=== PATIENT | male | born 1980 | race Caucasian/White ===

== ENCOUNTER 2020-07-18 12:18 | Outpatient (REF) | payer OTHER, SELFPAY | END 2020-07-18 12:19 | disposition home or self-care (01) | LOC: HO.HMGCLDS 12:18 | PROVIDERS: Visit Provider Internal Medicine | DX: Z20.828 Contact with and (suspected) exposure to other viral communicable diseases (principal) | CPT/HCPCS: C9803; U0003 ==

== ENCOUNTER 2020-08-16 07:24 | Outpatient (REF) | payer OTHER, SELFPAY | END 2020-08-16 07:25 | disposition home or self-care (01) | LOC: HO.LAB 07:24 | PROVIDERS: Visit Provider Internal Medicine | DX: Z20.828 Contact with and (suspected) exposure to other viral communicable diseases (principal) | CPT/HCPCS: C9803; U0003 ==

== ENCOUNTER 2020-09-13 07:04 | Outpatient (REF) | payer OTHER, SELFPAY | END 2020-09-13 07:05 | disposition home or self-care (01) | LOC: HO.LAB 07:04 | PROVIDERS: Visit Provider Internal Medicine | DX: Z20.828 Contact with and (suspected) exposure to other viral communicable diseases (principal) | CPT/HCPCS: 36415; C9803; U0003 ==

== ENCOUNTER 2023-03-07 10:21 | Outpatient (REF) | payer BC, OTHER, SELFPAY ==
[2023-03-07 11:41] LABS: Basophils Percent Auto 0.4 % (0-2); Eosinophils Percent Auto 0.2 % (0-4); Hematocrit 47.3 % (42.0-52.0); Hemoglobin 15.2 g/dl (14.0-18.0); Imm Gran Abs Auto 0.01 X10*3/uL (0.00-0.03); Imm Gran Pct Auto 0.2 % (0.0-0.4); Lymphocytes Absolute Auto 0.9 X10*3/uL (1.2-4.9); Lymphocytes Percent Auto 17.9 % (20-40); MANUAL DIFF FLAG SCAN; Mean Corpuscular HGB Conc 32.1 g/dl (31.0-36.0); Mean Corpuscular Hemoglobin 28.4 pg (27.0-33.0); Mean Corpuscular Volume 88.4 fL (80.0-98.0); Mean Platelet Volume 9.6 fL (9.4-12.4); Monocytes Absolute Auto 0.8 X10*3/uL (0.1-1.2); Neutrophils Absolute Auto 3.1 x10*3/uL (2.0-8.3); Neutrophils Percent Auto 65.3 % (45-73); PLT CLUMP 1; Red Blood Count 5.35 X10*6/uL (4.60-5.80); Red Cell Distribution Width 13.9 % (11.0-16.0); SCAN SMEAR FLAG 1
[2023-03-07 11:42] LABS: White Blood Count 4.8 X10*3/uL (4.8-10.8)
[2023-03-07 11:59] LABS: Platelet Count 166 X10*3/uL (160-400)
[2023-03-07 12:00] LABS: SLIDE REVIEW VERIFIED
[2023-03-07 12:20] LABS: Anion Gap 13 (12-20); Blood Urea Nitrogen 15 mg/dL (9-16); Calcium 9.5 mg/dL (8.4-10.2); Carbon Dioxide 25 mmol/L (22-29); Chloride 105 mmol/L (96-108); Estimated Glomerular Filt Rate > 60; Glucose Random 98 mg/dL (60-115); Potassium 4.2 mmol/L (3.3-5.1); Sodium 139 mmol/L (135-145)
[2023-03-10 17:48] LABS: Lyme Abs Screen <0.90 index
== END 2023-03-07 10:22 | disposition home or self-care (01) ==
LOC: HO.HMGCLDS 10:21
PROVIDERS: Visit Provider Nurse Practitioner Family
DX: A69.20 Lyme disease, unspecified (principal)
CPT/HCPCS: 36415; 80048; 85025; 86617; 86618

== ENCOUNTER 2023-04-15 08:04 | Outpatient (AMB) | payer BC, OTHER, SELFPAY ==
--- NOTE | 2023-04-15 08:07 | AM.OFFWIN_ITS ---
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 Pt states started Friday. 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 Patient is complaining of sudden onset sore throat and difficulty swallowing. In addition is complaining of joint pains in the wrist and knee. Feeling tired and fatigue. Started 3 weeks of doxycycline at the end of February. Patient reports that though the Lyme test was negative he completed the course. [facility] Social History Patient Tobacco Use Status: Never used Tobacco Physical Exam Vital Signs: Last Vital Signs Temp 98.5 F 04/15/23 08:16 Pulse 101 H 04/15/23 08:16 BP 118/66 04/15/23 08:16 Pulse Ox 98 04/15/23 08:16 Oxygen Delivery Method Room Air 04/15/23 08:16 Const General: cooperative and healthy appearing Nutritional Appearance: well nourished Orientation/consciousness: patient oriented x3 Limitations: no limitations HEENT Head: Yes normal to inspection Eyes General: appearance normal, both eyes and all related structures Neck Neck: Yes normal visual inspection Chest Chest palpation & inspection: normal palpation of entire chest wall Resp Effort & Inspection: normal respiratory effort Neuro General: patient oriented x3 Results AMB Rapid Strep AMB Rapid Strep Negative Last Edit by Alina Garcia CMA on 04/15/23 08 :30 Results Reviewed Results Reviewed: Laboratory Last Values Strep Scn Rapid Clinic Negative 04/15/23 08:30 Assessment & Plan Assessment & Plan (1) Upper respiratory tract infection: Code(s): J06.9 - Acute upper respiratory infection, unspecified Plan: Antibiotics ordered. Increase fluid intake. Tylenol for aches and pains. If symptoms worsen, follow-up here for a recheck. Patient requested repeat Lyme testing. The blood work has been ordered. Will call with results. Orders: Orders Lyme IgG/IgM w/reflex to WB Today A69.20 - Lyme disease, unspecified Erythrocyte Sedimentation Rate Today A69.20 - Lyme disease, unspecified Complete Blood Count no Diff Today A69.20 - Lyme disease, unspecified Basic Metabolic Panel Today A69.20 - Lyme disease, unspecified Liver Panel Today A69.20 - Lyme disease, unspecified AMB Rapid Strep Screen Today Z13.9 - Encounter for screening, unspecified Medications: New amoxicillin 500 mg PO Q8H 30 caps 0RF Coding Level of Care Code Est Pt Level 3 (84909) Diagnoses Upper respiratory tract infection J06.9
[2023-04-15 08:16] VITALS: BP 118/66; PULSE 101; TEMP 36.9; O2SAT 98
== END 2023-04-15 09:53 | disposition home or self-care (01) ==
PROVIDERS: Visit Provider Internal Medicine
DX: J06.9 Acute upper respiratory infection, unspecified (principal); J02.9 Acute pharyngitis, unspecified
CPT/HCPCS: 87880; 99213

== ENCOUNTER 2023-04-15 08:30 | Outpatient (REF) | payer BC, OTHER, SELFPAY ==
[2023-04-15 11:48] LABS: Hematocrit 50.1 % (42.0-52.0); Hemoglobin 16.1 g/dl (14.0-18.0); Mean Corpuscular HGB Conc 32.1 g/dl (31.0-36.0); Mean Corpuscular Hemoglobin 28.4 pg (27.0-33.0); Mean Corpuscular Volume 88.4 fL (80.0-98.0); Mean Platelet Volume 9.5 fL (9.4-12.4); Platelet Count 222 X10*3/uL (160-400); Red Blood Count 5.67 X10*6/uL (4.60-5.80); Red Cell Distribution Width 13.8 % (11.0-16.0); White Blood Count 12.5 X10*3/uL (4.8-10.8)
[2023-04-15 12:21] LABS: Erythrocyte Sedimentation Rate 7 MM/HR (0-15)
[2023-04-15 12:26] LABS: Alanine Aminotransferase 50 U/L (0-40); Albumin Level 4.3 g/dL (3.5-5.0); Alkaline Phosphatase 64 U/L (39-117); Anion Gap 11 (12-20); Aspartate Amino Transferase 29 U/L (5-37); Bilirubin Direct 0.2 mg/dL (0.0-0.5); Bilirubin Total 0.4 mg/dL (0.0-1.0); Blood Urea Nitrogen 16 mg/dL (9-16); Calcium 9.5 mg/dL (8.4-10.2); Carbon Dioxide 24 mmol/L (22-29); Chloride 106 mmol/L (96-108); Estimated Glomerular Filt Rate > 60; Glucose Random 105 mg/dL (60-115); Potassium 4.1 mmol/L (3.3-5.1); Sodium 137 mmol/L (135-145); Total Protein 7.6 g/dL (6.5-8.0)
[2023-04-17 08:23] LABS: Lyme Blot 3.84 index
[2023-04-18 12:17] LABS: 18 KD (IgG) Band NON-REACTIVE; 23 KD (IgG) Band REACTIVE; 23 KD (IgM) Band REACTIVE; 28 KD (IgG) Band NON-REACTIVE; 30 KD (IgG) Band NON-REACTIVE; 39 KD (IgM) Band NON-REACTIVE; 39KD (IgG) Band NON-REACTIVE; 41 KD (IgM) Band REACTIVE; 41KD (IgG) Band REACTIVE; 45 KD (IgG) Band NON-REACTIVE; 58 KD (IgG) Band NON-REACTIVE; 66 KD (IgG) Band NON-REACTIVE; 93 KD (IgG) Band NON-REACTIVE; Lyme IgG Blot Interp NEGATIVE (NEGATIVE); Lyme IgM Blot Interp POSITIVE (NEGATIVE)
[2023-04-18 12:19] LABS: Lyme Abs Screen POSITIVE
== END 2023-04-15 08:31 | disposition home or self-care (01) ==
LOC: HO.HMGCLDS 08:30
PROVIDERS: Visit Provider Internal Medicine
DX: A69.20 Lyme disease, unspecified (principal)
CPT/HCPCS: 36415; 80048; 80076; 85027; 85652; 86617; 86618

== ENCOUNTER 2023-09-18 08:01 | Outpatient (AMB) | payer BC, SELFPAY ==
[2023-09-18 08:08] VITALS: BP 118/64; PULSE 78; O2SAT 97; BMI 36.5
--- NOTE | 2023-09-18 08:08 | A.OFFPC_ITS ---
Vital Signs 09/18/23 08:08 Height 5 ft 9 in Weight 247 lb BMI 36.5 BP 118/64 Blood Pressure Location Rt brachial Position Sitting Pulse 78 Pulse Source Pulse Oximeter Pulse Oximetry (%) 97 Oxygen Delivery Method Room Air Intake Visit Reasons: New Patient Intake Note: pt is here for new patient, establish care. patient has concerns about lingering cough and congestion for 5 weeks. was given a friends inhaler to help with breathing Retirement Officer Required: No Accompanied by: Self / Same As Patient Allergies No Known Allergies Allergy (Verified 09/18/23 08:24) all narcotics / do not prescri Allergy (Unknown, Uncoded 09/18/23 08:24) Unknown Medication List - Last Reconciled 09/18/23 by DENIS Pérez testosterone cypionate 200 mg IM Q2W Tobacco use date assessed: 09/18/23 Dental Screening Dental Screen Date: 09/18/23 Did you have a dental visit in the last 12 months?: No Did you have a dental problem in the last 6 months where you did not have access to dental care?: No Was dental information given to patient?: Yes HPI HPI Comments History of Present Illness Details Patient is a 43-year-old male here to establish care. He has a past medical history significant for Lyme disease. He is due for colonoscopy next year. Up-to-date on immunizations, except for this year's influenza a and COVID booster. 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 He has a chief complaint of wheeze and cough x6 weeks. States that he has of little child home that has been sick and has similar symptoms. His initial symptoms of fever, sore throat, headache have resolved, however the cough has lingered. He states that the cough is so bad at times makes him lightheaded. Tends to be worse at night and is interrupting his ability to sleep. Denies shortness of breath, chest pain, numbness, tingling, nausea, vomiting, diarrhea. 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 1. Little interest or pleasure in doing things: not at all 2. Feeling down, depressed, or hopeless: not at all 3. Trouble falling or staying asleep, or sleeping too much: not at all 4. Feeling tired or having little energy: not at all 5. Poor appetite or overeating: not at all 6. Feeling bad about yourself - or that you are a failure or have let yourself or your family down: not at all 7. Trouble concentrating on things, such as reading the newspaper or watching television: not at all 8. Moving or speaking so slowly that other people could have noticed. Or the opposite - being so fidgety or restless that you have been moving around a lot more than usual: not at all 9. Thoughts that you would be better off or of hurting yourself in some way: not at all Total score: 0 Depression Screening Interpretation: Negative Depression Screening Done: Yes 62190 - PHQ-9 Billing: Yes Source: Developed by Drs. Fabrice Gan, Idania Aguirre, Rl Palomo and colleagues, with an educational drake from [employer]. Thrive Questionnaire Date Thrive assessed: 09/18/23 I am a: Patient What is your living situation today?: I have a steady place to live Within the past 12 months, did the food you bought not last and you didn't have the money to get more?: Never true Within the past 12 months, did you worry whether your food would run out before you got money to buy more?: Never true Do you have trouble paying for medicines?: No Do you have trouble getting transportation to medical appointments?: No Do you have trouble paying your heating and electricity bill?: No Do you have trouble taking care of your child, family member or friend?: No Do you have trouble with day-to-day activities such as bathing, preparing meals, shopping, managing finances, etc.?: No Are you currently unemployed and looking for a job?: No Are you interested in more education?: No Please select the resources that you would like help with: None Currently or been in a relationship where the following occur: no concerns reported AUDIT C Alcohol Use Questionnaire (AUDIT-C) 1. How often do you have a drink containing alcohol?: Never 3. How often do you have six or more drinks on one occasion?: Never Total Score: 0 Score Reviewed/Action Taken: Yes DEION-7 AMB Questionnaire DEION-7 Date DEION - 7 assessed: 09/18/23 Feeling nervous, anxious, or on edge: 0 = Not at all Not being able to stop or control worryin = Not at all Worrying too much about different things: 0 = Not at all Trouble relaxin = Not at all Being so restless that it is hard to sit still: 0 = Not at all Becoming easily annoyed or irritable: 0 = Not at all Feeling afraid as if something awful might happen: 0 = Not at all Total DEION-7 score (0-4 normal; 5-9 mild; 10-14 moderate; 15-21 severe): 0 Source: Developed by Drs. Fabrice Gan, Idania Aguirre, Rl Palomo and colleagues, with an educational drake from [employer]. DEION-7 Assessment Billing DEION-7 Assessment Tool: DEION-7 Assessment 29141 Review of Systems Const Details: Constitutional : No Weight loss, No Fever, No Chills, No Fatigue, No Malaise ENT/Mouth : No sore throat, No Rhinorrhea Eyes: No Eye Pain, No Swelling, No Redness Cardiovascular : No Chest Pain, No SOB, No Dyspnea on Exertion, No Orthopnea, No Edema, No Palpitations Respiratory : Admits Cough, Admits Sputum, Admits Wheezing Gastrointestinal : No Nausea, No Vomiting, No Diarrhea, No Constipation, No abdominal Pain, No Hematochezia, No Melena Neuro : No Weakness, No Numbness, No Dizziness, No Headache All other systems reviewed and are negative Physical exam (Primary Care) Vital Signs: Last Vital Signs Pulse 78 09/18/23 08:08 BP 118/64 09/18/23 08:08 Pulse Ox 97 09/18/23 08:08 Oxygen Delivery Method Room Air 09/18/23 08:08 Care Plan Goal for BP management: Vital signs reviewed and stable BMI result Body Mass Index 36.5 Tobacco/Smoking Status: Tobacco use Status Tobacco use date assessed 09/18/23 09/18/23 08:11 Patient Tobacco Use Status Former Tobacco user (over 20 09/18/23 08:18 years ago) e-Cigarette/Vaping Use Never Used 09/18/23 08:17 Depression Screening Interpretation: Negative Currently or been in a relationship where the following occur: no concerns reported Const Other: Appearance: Alert.? Oriented X3.? No acute distress.? ENT: Pharynx normal.? Neck: Normal inspection.? Neck supple.? CVS: Normal heart rate and rhythm.? Pulses normal.? Respiratory: No respiratory distress.? Patient active cough in office. Bilateral wheeze of upper lobes. No crackles. Neuro: Oriented X 3.? No motor deficit.? No sensory deficit. CN 2-12 intact MSK: Crepitus of left elbow with flexion and extension. Assessment and Plan Assessment & Plan (1) Cough: Comment: Will give benzonatate, prednisone, albuterol, Symbicort, to be taken as directed. Patient has been educated on the common side effects of these medications. Patient has been educated on signs of worsening symptoms and when to return to the office or when to present to the emergency room. Code(s): R05.9 - Cough, unspecified Qualifiers: Cough type: acute Qualified Code(s): R05.1 - Acute cough Plan: Take your medications as prescribed. If you were prescribed antibiotics today, it is important that you take your medication to their entirety, do not skip any doses, do not finish them early. Follow-up with your primary care provider this week. Return to the emergency department with new or worsening symptoms. Such as fevers, chills, chest pain, shortness of breath, nausea, vomiting, dizziness, headache, vision changes, lethargy In case of emergency call 911 (2) Left elbow pain: Code(s): M25.522 - Pain in left elbow Plan: Will order x-ray of left elbow. Plan Patient will follow-up with physical exam in 4 months. Orders: Orders Complete Blood Count Auto Diff Today Z13.0 - Encounter for screening for disease s of the blood and blood-forming organs and certain disorders involving the immune mechanism UA CC w/rflx Micro + Cult Today E86.0 - Dehydration Vitamin B6 Today E53.8 - Deficiency of other specified B group vitamins Lipid Panel Today E78.5 - Hyperlipidemia, unspecified XR elbow LT 2V Today M25.522 - Pain in left elbow SARS-CoV2/FLU/RSV Today J06.9 - Acute upper respiratory infection, unspecified Comprehensive Met. Panel Today Z91.89 - Other specified personal risk factors, not elsewhere classified Vitamin D 25-OH (D2 and D3) Today E55.9 - Vitamin D deficiency, unspecified TSH reflex Free T4 Today E03.9 - Hypothyroidism, unspecified Vitamin B12 Today E53.8 - Deficiency of other specified B group vitamins Testosterone, Free/Total Today E29.1 - Testicular hypofunction Medications: New benzonatate 100 mg PO BID PRN 30 caps 0RF cough albuterol sulfate 90 mcg/actuation 2 puffs inhalation Q6H PRN 6.7 grams 0RF shortness of breath or wheezing budesonide-formoterol 80-4.5 mcg/actuation (Symbicort) 1 puff inhalation BID 10.2 grams 0RF prednisone 20 mg PO BID 10 tabs 0RF Coding Level of Care Code Est Pt Level 3 (81482) Diagnoses Acute cough R05.1 Cough type: acute Left elbow pain M25.522 Additional Codes DEION-7 Assessment Billing - DEION-7 Assessment Tool: DEION-7 Assessment 78971 ([id number]) Time Spent (min) 45
== END 2023-09-18 09:00 | disposition home or self-care (01) ==
PROVIDERS: Visit Provider Nurse Practitioner Primary Care
DX: R05.1 Acute cough (principal); M25.522 Pain in left elbow
CPT/HCPCS: 99215

== ENCOUNTER 2023-09-18 08:54 | Outpatient (REF) | payer BC, SELFPAY ==
--- NOTE | ~2023-09-18 | XR_ITS ---
EXAMINATION: XR ELBOW, LEFT CLINICAL INFORMATION: Pain left elbow COMPARISON: None available. TECHNIQUE: AP, lateral, and oblique views of the left elbow. FINDINGS: Minimally displaced fracture along the medial margin of the proximal ulnar head with intra-articular extension. Slight enthesopathy at the triceps tendon insertion site. Joint space alignment otherwise maintained. Trace elbow joint effusion. Soft tissues are unremarkable. XR/XR elbow LT 2V IMPRESSION: 1. Minimally displaced fracture along the medial margin of the proximal ulnar head with intra-articular extension. 2. Slight enthesopathy at the triceps tendon insertion site. 3. Trace elbow joint effusion.
[2023-09-18 11:34] LABS: MANUAL DIFF FLAG NO
[2023-09-18 11:51] LABS: Basophils Percent Auto 0.3 % (0-2); Eosinophils Absolute Auto 0.1 X10*3/uL (0.0-0.4); Eosinophils Percent Auto 1.4 % (0-4); Hematocrit 52.1 % (42.0-52.0); Hemoglobin 17.1 g/dl (14.0-18.0); Imm Gran Abs Auto 0.03 X10*3/uL (0.00-0.03); Imm Gran Pct Auto 0.5 % (0.0-0.4); Lymphocytes Absolute Auto 1.6 X10*3/uL (1.2-4.9); Lymphocytes Percent Auto 25.4 % (20-40); Mean Corpuscular HGB Conc 32.8 g/dl (31.0-36.0); Mean Corpuscular Hemoglobin 27.9 pg (27.0-33.0); Mean Corpuscular Volume 85.1 fL (80.0-98.0); Mean Platelet Volume 9.3 fL (9.4-12.4); Monocytes Absolute Auto 0.6 X10*3/uL (0.1-1.2); Monocytes Percent Auto 9.7 % (2-11); Neutrophils Absolute Auto 3.9 x10*3/uL (2.0-8.3); Neutrophils Percent Auto 62.7 % (45-73); Platelet Count 244 X10*3/uL (160-400); Red Blood Count 6.12 X10*6/uL (4.60-5.80); Red Cell Distribution Width 13.5 % (11.0-16.0); White Blood Count 6.3 X10*3/uL (4.8-10.8)
[2023-09-18 12:08] LABS: Appearance Urine Clear; Color Urine Yellow; Glucose Urine UA Negative (Negative); Leukocyte Esterase Urine Negative (Negative); Nitrite Urine Negative (Negative); PH 6.5 (5.0-9.0); Urine Blood Negative (Negative); Urine Ketones Negative (Negative); Urine Protein Negative (Neg-Trace)
[2023-09-18 12:11] LABS: Alanine Aminotransferase 26 U/L (0-40); Albumin Level 4.3 g/dL (3.5-5.0); Alkaline Phosphatase 56 U/L (39-117); Anion Gap 11 (12-20); Aspartate Amino Transferase 23 U/L (5-37); Bilirubin Total 0.4 mg/dL (0.0-1.0); Blood Urea Nitrogen 18 mg/dL (9-16); Calcium 9.2 mg/dL (8.4-10.2); Carbon Dioxide 26 mmol/L (22-29); Chloride 104 mmol/L (96-108); Cholesterol 193 mg/dL (<200); Estimated Glomerular Filt Rate > 60; Glucose Random 106 mg/dL (60-115); HDL Cholesterol 47 mg/dL (>40); LDL Cholesterol Calculated 122 mg/dL (<100); Potassium 4.3 mmol/L (3.3-5.1); Sodium 137 mmol/L (135-145); Total Protein 7.7 g/dL (6.5-8.0); Triglycerides 120 mg/dL (<150)
[2023-09-18 12:20] LABS: Influenza A PCR NEGATIVE (Negative); Influenza B PCR NEGATIVE (Negative); Resp Syncy Virus RNA Qual PCR NEGATIVE (Negative); SARS COV2 PCR INHOUSE NEGATIVE (Negative)
[2023-09-18 12:23] LABS: Vitamin B12 509 pg/mL (200-900)
[2023-09-18 12:38] LABS: TSH reflex Free T4 2.22 uIU/mL (0.32-4.0)
[2023-09-23 16:13] LABS: Vitamin B6 9.7 ng/mL (2.1-21.7)
[2023-09-23 16:32] LABS: Vitamin D 25-OH, D2 <4 ng/mL; Vitamin D 25-OH, D3 26 ng/mL; Vitamin D 25-OH, Total 26 ng/mL (30-100)
[2023-09-24 15:32] LABS: Testosterone, Free 252.2 pg/mL (35.0-155.0); Testosterone, Total 1184 ng/dL (250-1100)
== END 2023-09-18 08:55 | disposition home or self-care (01) ==
LOC: HO.HMGCX 08:54
PROVIDERS: PCP Nurse Practitioner Primary Care; Visit Provider Nurse Practitioner Primary Care
DX: E53.8 Deficiency of other specified B group vitamins (principal); E55.9 Vitamin D deficiency, unspecified; E86.0 Dehydration; E29.1 Testicular hypofunction; E03.9 Hypothyroidism, unspecified; J06.9 Acute upper respiratory infection, unspecified; E78.5 Hyperlipidemia, unspecified; M25.522 Pain in left elbow; Z91.89 Other specified personal risk factors, not elsewhere classified; Z13.0 Encounter for screening for diseases of the blood and blood-forming organs and certain disorders involving the immune mechanism
CPT/HCPCS: 0241U; 36415; 73070; 80053; 80061; 81003; 82306; 82607; 84207; 84402; 84403; 84443; 85025

== ENCOUNTER 2023-09-24 10:07 | Outpatient (REF) | payer BC, SELFPAY | END 2023-09-24 10:08 | disposition home or self-care (01) | LOC: HO.HOSX 10:07 | PROVIDERS: Visit Provider Physician Assistant | DX: S53.442A Ulnar collateral ligament sprain of left elbow, initial encounter (principal) | CPT/HCPCS: 99202 ==

== ENCOUNTER 2023-09-24 10:27 | Outpatient (AMB) | payer BC, SELFPAY ==
--- NOTE | 2023-09-24 10:37 | A.OFFVIS_ITS ---
Intake Vital Signs 09/24/23 10:48 Height 5 ft 9 in Weight 247 lb BMI 36.5 Intake Visit Reasons: fc- left proximal ulna avulsion fx Intake Note: Max tamayo 43 year old male presents today as a new patient for an evaluation of left proximal ulna avulsion fx. Patient reports about 4-5 months ago while at work he was picking up box, he pulled sideways not realizing the box was wedged and he felt a pop. He placed box down and rested his arm. His pain has improved however he continues to have pain with rotating and pressing forward. Allergies No Known Allergies Allergy (Verified 09/24/23 10:40) all narcotics / do not prescri Allergy (Unknown, Uncoded 09/24/23 10:40) Unknown HPI fc- left proximal ulna avulsion fx HPI Details 43-year-old male who presents to the off ice today for evaluation of left elbow injury s/p picking up a box at work when he pulled sideways not realizing the box was wedged and he heard a pop in his elbow. He reports he placed the box down and rested his arm. He was seen in the past for his pain where x-rays were performed and he was referred to our office. He currently states he has improvement in his pain but he does c/o pain with rotating and pushing forward. 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 Current occupational exposures/hazards: Yes Cognitive needs: No Hearing needs: No Vision needs: Yes Review of Systems Const All systems reviewed & are unremarkable except as noted in HPI and below Physical Exam Vital Signs: BMI result Body Mass Index 36.5 Const General: cooperative, healthy appearing, comfortable, no acute distress, well developed and alert Orientation/consciousness: patient oriented x3 HEENT Head: Yes normal to inspection, Yes normocephalic and Yes atraumatic Eyes General: appearance normal, both eyes and all related structures Resp Effort & Inspection: normal respiratory effort and able to speak in complete sentences Cardio Rate: regular rate Peripheral pulses: Peripheral pulses 2+ throughout GI Palpation (GI): Soft to palpation Skin Lesions: no lesions Rashes: no rashes Neuro General: patient oriented x3 Extrem Other: Left elbow: Normal to inspection. No swelling or ecchymosis. No tenderness to palpation. He has full ROM. Supination and pronation without pain. NVI. Assessment & Plan Assessment & Plan (1) Ulnar collateral ligament sprain: Code(s): S53.449A - Ulnar collateral ligament sprain of unspecified elbow, initial encounter Qualifiers: Encounter type: initial encounter Laterality: left Qualified Code(s): S53.442A - Ulnar collateral ligament sprain of left elbow, initial encounter Plan Clinically he has no deficit and is functioning well without discomfort. He will continue activities as tolerated and follow-up if symptoms arise. Orders: Orders XR elbow LT min 3V Today M25.522 - Pain in left elbow Patient Instructions: Scribed for Cornel Low PA-C, by Mckinley Bull medical device sales consultant, on 09/24/2023 at 10:30 AM ADE. ICornel PA-C, have personally reviewed and agree with the information entered by the scribe. Coding Level of Care Code New Pt Level 3 (51767) Diagnoses Sprain of ulnar collateral ligament of left elbow, initial encounter S53.442A Encounter type: initial encounter Laterality: left
[2023-09-24 10:48] VITALS: BMI 36.5
== END 2023-09-24 11:17 | disposition home or self-care (01) ==
PROVIDERS: PCP Nurse Practitioner Primary Care; Visit Provider Physician Assistant
DX: S53.442A Ulnar collateral ligament sprain of left elbow, initial encounter (principal)
CPT/HCPCS: 99203

== ENCOUNTER 2024-01-05 13:32 | Outpatient (AMB) | payer BC, SELFPAY ==
[2024-01-05 13:38] VITALS: BP 120/74; PULSE 110; O2SAT 97; BMI 34.6
--- NOTE | 2024-01-05 13:38 | A.OFFPC_ITS ---
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 Required: No Accompanied by: Self / Same As Patient Allergies No Known Allergies Allergy (Verified 01/05/24 14:03) all narcotics / do not prescri Allergy (Unknown, Uncoded 01/05/24 14:03) Unknown Medication List - Last Reconciled 01/05/24 by DENIS Pérez testosterone cypionate 200 mg IM Q2W Tobacco use date assessed: 09/18/23 Dental Screening Dental Screen Date: 09/18/23 Did you have a dental visit in the last 12 months?: No Did you have a dental problem in the last 6 months where you did not have access to dental care?: No Was dental information given to patient?: Yes HPI HPI Comments History of Present Illness Details Patient is a 43-year-old male in today for physical exam. Patient is up-to-date on immunizations. Patient has a past medical history significant for left elbow pain secondary to ulnar ligament sprain, history of testosterone use. Patient states that he is generally feeling well, has no symptoms of anxiety or depression. States over this past winter he has gained 30 lb and is going back to the gym to workout, has subsequently restarted taking testosterone injections. Will order labs. Patient is tachycardic at exam today will order EKG. Patient denies symptoms of chest pain or shortness a breath. 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 How often do you have a drink containing alcohol?: Never 3. How often do you have six or more drinks on one occasion?: Never Total Score: 0 Score Reviewed/Action Taken: Yes DEION-7 AMB Questionnaire DEION-7 Date DEION - 7 assessed: 09/18/23 Source: Developed by Drs. Fabrice Gan, Idania Aguirre, Rl Palomo and colleagues, with an educational drake from [employer]. Review of Systems Const Details: Constitutional : No Weight loss, No Fever, No Chills, No Fatigue, No Malaise ENT/Mouth : No sore throat, No Rhinorrhea Eyes: No Eye Pain, No Swelling, No Redness Cardiovascular : No Chest Pain, No SOB, No Dyspnea on Exertion, No Orthopnea, No Edema, No Palpitations Respiratory : No Cough, No Sputum, No Wheezing Gastrointestinal : No Nausea, No Vomiting, No Diarrhea, No Constipation, No abdominal Pain, No Hematochezia, No Melena Genitourinary : No Dysuria, No Urinary Frequency, No Hematuria, Musculoskeletal : No joint pain, No Myalgias, No Joint Swelling Skin : No Skin Lesions, No rash Neuro : No Weakness, No Numbness, No Dizziness, No Headache Psych : No Anxiety/Panic, No Depression Heme/Lymph: No Bruising, No Bleeding,No Lymphadenopathy Endocrine : No Polyuria, No Polydipsia All other systems reviewed and are negative Physical exam (Primary Care) Vital Signs: Last Vital Signs Pulse 110 H 01/05/24 13:38 BP 120/74 01/05/24 13:38 Pulse Ox 97 01/05/24 13:38 Oxygen Delivery Method Room Air 01/05/24 13:38 Care Plan Goal for BP management: Patient's blood pressure is stable. BMI result Body Mass Index 34.6 Tobacco/Smoking Status: Tobacco use Status Tobacco use date assessed 09/18/23 01/05/24 13:38 Patient Tobacco Use Status Former Tobacco user (over 20 01/05/24 13:38 years ago) e-Cigarette/Vaping Use Never Used 01/05/24 13:38 Thrive Assessment: Date of Thrive Assessment Date Thrive assessed 09/18/23 01/05/24 13:38 Const Other: Appearance: Alert.? Oriented X3.? No acute distress.? Head: Normocephalic, atraumatic, no step-offs or deformities Eyes: Pupils equal, round and reactive to light.? ENT: Pharynx normal.?TM intact and pearly mccarthy. Neck: Normal inspection.? Neck supple.?Full ROM. CVS: Normal heart rate and rhythm.? Pulses normal.? Respiratory: No respiratory distress.? Breath sounds normal.? Abdomen: Soft and nontender.? Skin: Patient has raised growth on back of head, atypical nevi. Aprox 4mm x 4mm. Extremities: No lower extremity edema.? Back: No midline tenderness, no C-spine tenderness, full range of motion, no CVA tenderness bilaterally Neuro: Oriented X 3.? No motor deficit.? No sensory deficit. CN 2-12 intact Assessment and Plan Assessment & Plan (1) Elevated testosterone level: Comment: Patient has been taking testosterone injections. Patient has been advised against this. Patient has been educated on the side effects of testosterone. Will draw labs Code(s): R79.89 - Other specified abnormal findings of blood chemistry (2) Atypical nevi: Comment: Will refer patient to Dermatology. Code(s): D22.9 - Melanocytic nevi, unspecified Plan: Take your medications as prescribed. If you were prescribed antibiotics today, it is important that you take your medication to their entirety, do not skip any doses, do not finish them early. Follow-up with your primary care provider this week. Return to the emergency department with new or worsening symptoms. Such as fevers, chills, chest pain, shortness of breath, nausea, vomiting, dizziness, headache, vision changes, lethargy In case of emergency call 911 Plan Will follow-up with lab results. Orders: Orders UA CC w/rflx Micro + Cult Today Z13.89 - Encounter for screening for other disorder Comprehensive Met. Panel Today Z91.89 - Other specified personal risk factors, not elsewhere classified Testosterone, Free/Total Today R79.89 - Other specified abnormal findings of blood chemistry AMB EKG-In Office Today Z13.6 - Encounter for screening for cardiovascular disorders Estrogen Today Z79.818 - [facility] (current) use of other agents affecting estrogen receptors and estrogen levels Referrals Dermatology Referral D22.9 - Melanocytic nevi, unspecified Coding Level of Care Code Est Pt Level 3 (40772) Diagnoses Elevated testosterone level R79.89 Atypical nevi D22.9 Time Spent (min) 28
== END 2024-01-05 14:40 | disposition home or self-care (01) ==
PROVIDERS: Visit Provider Nurse Practitioner Primary Care
DX: R79.89 Other specified abnormal findings of blood chemistry (principal); D22.9 Melanocytic nevi, unspecified
CPT/HCPCS: 99213

== ENCOUNTER 2024-01-05 14:39 | Outpatient (REF) | payer BC, SELFPAY ==
[2024-01-05 16:22] LABS: Appearance Urine Clear; Color Urine Yellow; Glucose Urine UA Negative (Negative); Leukocyte Esterase Urine Negative (Negative); Nitrite Urine Negative (Negative); PH 5.5 (5.0-9.0); Urine Blood Negative (Negative); Urine Ketones Negative (Negative); Urine Protein Negative (Neg-Trace)
[2024-01-05 17:10] LABS: Alanine Aminotransferase 20 U/L (0-40); Albumin Level 4.3 g/dL (3.5-5.0); Alkaline Phosphatase 53 U/L (39-117); Anion Gap 13 (12-20); Aspartate Amino Transferase 18 U/L (5-37); Bilirubin Total 0.3 mg/dL (0.0-1.0); Blood Urea Nitrogen 17 mg/dL (9-16); Calcium 9.7 mg/dL (8.4-10.2); Carbon Dioxide 24 mmol/L (22-29); Chloride 107 mmol/L (96-108); Estimated Glomerular Filt Rate > 60; Glucose Random 97 mg/dL (60-115); Potassium 4.1 mmol/L (3.3-5.1); Sodium 140 mmol/L (135-145); Total Protein 7.6 g/dL (6.5-8.0)
[2024-01-12 18:09] LABS: Estrogen 137 pg/mL (< OR = 404)
[2024-01-15 12:13] LABS: Testosterone, Free 250.3 pg/mL (35.0-155.0); Testosterone, Total 1353 ng/dL (250-1100)
== END 2024-01-05 14:40 | disposition home or self-care (01) ==
LOC: HO.HMGCLDS 14:39
PROVIDERS: PCP Nurse Practitioner Primary Care; Visit Provider Nurse Practitioner Primary Care
DX: R79.89 Other specified abnormal findings of blood chemistry (principal); Z91.89 Other specified personal risk factors, not elsewhere classified; Z79.818 Long term (current) use of other agents affecting estrogen receptors and estrogen levels; Z13.89 Encounter for screening for other disorder
CPT/HCPCS: 36415; 80053; 81003; 82672; 84402; 84403

== ENCOUNTER 2024-03-08 10:49 | Outpatient (AMB) | payer OTHER, BC, SELFPAY ==
[2024-03-08 11:32] VITALS: BP 116/80; PULSE 110; TEMP 36.7; O2SAT 96; BMI 34.2
--- NOTE | 2024-03-08 11:32 | MHC.OFFWIV ---
Intake Vital Signs 03/08/24 11:32 Height 5 ft 9 in Weight 231 lb 6 oz BMI 34.2 BP 116/80 Blood Pressure Location Rt brachial Position Sitting Pulse 110 H Pulse Source Pulse Oximeter Temp 98.0 F Temp Source Temporal Artery Scan Pulse Oximetry (%) 96 Oxygen Delivery Method Room Air Intake Visit Reasons: EP Lip injury at work/RT side shoulder/back pain Intake Note: pt is here for lip injury at work, right shoulder and back pain also. Patient Tobacco Use Status: Former Tobacco user (over 20 years ago) Allergies No Known Allergies Allergy (Verified 03/08/24 11:33) all narcotics / do not prescri Allergy (Unknown, Uncoded 01/05/24 14:03) Unknown Do you need a note to return to daycare/school/sports/work: No HPI HPI Comments History of Present Illness Details Patient is a 43-year-old male complaining of a cut above his upper lip that occurred about 45 minutes ago while he was at work. He said he was taking down some metal bars and thought 1 of the metal bars was attached but it was not and it hit him right above his upper lip. He does not know when his last tetanus was. 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 Current occupational exposures/hazards: Yes Cognitive needs: No Hearing needs: No Vision needs: Yes Physical Exam Vital Signs: Last Vital Signs Temp 98.0 F 03/08/24 11:32 Pulse 110 H 03/08/24 11:32 BP 116/80 03/08/24 11:32 Pulse Ox 96 03/08/24 11:32 Oxygen Delivery Method Room Air 07/01/24 11:32 BMI result Body Mass Index 34.2 Const General: cooperative, healthy appearing, comfortable, no acute distress and well developed Orientation/consciousness: patient oriented x3 Limitations: no limitations HEENT Other: 1cm laceration on philtrum, does not go through to inside of upper lip, does not cross the vermilion border. Not actively bleeding. Head: Yes normal to inspection General nose exam: Normal external nose present Mouth: Normal oral and palatal mucosa present Teeth and gingiva: dentition normal Resp Effort & Inspection: normal respiratory effort and able to speak in complete sentences Back/Spine/Pelvis Cervical Spine: cervical ROM normal and No Cervical spine tenderness Thoracic/Lumbar Spine: thoracic and lumbar spine normal to inspection, thoraco-lumbar spasm on the right, No thoracic spinal tenderness and No lumbar spinal tenderness Neuro General: patient oriented x3 Extrem Right upper extremity: normal to inspection and shoulder/upper arm Details: tenderness Location: of the A-C joint and abnormal ROM Details: pain with active ROM Details: in ABduction and in internal rotation; no swelling Office Procedures Laceration Repair Laceration repair performed by: Di Samuels Explained risks and benefits to parent: Yes Informed consent given: Yes Consent signed: No Location: philtrum Length: 1.25c Sedation: No Anesthesia: 2% lidocaine Irrigation: saline Preparation: betadine Wound exploration: none Deep closure: No Skin closure: nylon Technique: Applied 2 sutures, no complications Topical treatment: dry Tetanus toxoid ordered: Yes Patient tolerated procedure: well [place]: [place] [id number] Repair <2.5cm Procedure code (CPT) selection complete Assessment & Plan Assessment & Plan (1) Cut of face: Code(s): S01.81XA - Laceration without foreign body of other part of head, initial encounter Plan: 2 sutures applied to [place]. (2) Shoulder pain, right: Code(s): M25.511 - Pain in right shoulder Qualifiers: Chronicity: acute Qualified Code(s): M25.511 - Pain in right shoulder Plan: sent ortho referral (3) Back muscle spasm: Code(s): M62.830 - Muscle spasm of back Plan: recommended massaging and pressure, if no improvement, follow up with PCP Plan see above Orders: Orders TDaP Immunization Today S01.81XA - Laceration without foreign body of other part of head, initial encounter Referrals Orthopedics Referral M25.511 - Pain in right shoulder Medications: New Boostrix Tdap (diphth,pertus(acell),tetanus) 0.5 mL IM ONCE 0.5 mL 0RF NS S01.81XA - Laceration without foreign body of other part of head, initial encounter Coding Level of Care Code Est Pt Level 5 (69159) Diagnoses Cut of face S01.81XA Acute pain of right shoulder M25.511 Chronicity: acute Back muscle spasm M62.830
== END 2024-03-08 13:06 | disposition home or self-care (01) ==
PROVIDERS: PCP Nurse Practitioner Primary Care; Visit Provider Physician Assistant
DX: S01.81XA Laceration without foreign body of other part of head, initial encounter (principal); M25.511 Pain in right shoulder; M62.830 Muscle spasm of back; Z04.2 Encounter for examination and observation following work accident
CPT/HCPCS: 12001; 90471; 90715; 99214

== ENCOUNTER 2024-03-22 15:47 | Outpatient (AMB) | payer BC, SELFPAY ==
--- NOTE | 2024-03-22 15:51 | AM.OFFWIN_ITS ---
Intake Vital Signs 03/22/24 15:52 Height 5 ft 9 in Weight 230 lb 4 oz BMI 34.0 BP 138/82 Blood Pressure Location Lt brachial Position Sitting Pulse 79 Pulse Source Pulse Oximeter Temp 98 F Temp Source Oral Pulse Oximetry (%) 100 Oxygen Delivery Method Room Air Intake Visit Reasons: EP work clearance Intake Note: Pt is here today to cleared to from last visit 03/08/24 Patient Tobacco Use Status: Former Tobacco user (over 20 years ago) Allergies No Known Allergies Allergy (Verified 03/22/24 15:53) all narcotics / do not prescri Allergy (Unknown, Uncoded 01/05/24 14:03) Unknown Do you need a note to return to daycare/school/sports/work: Yes HPI HPI Comments History of Present Illness Details patient is a 43-year-old male complaining of continued right shoulder pain. He was seen in this office on March 08 for multiple issues, 1 of them being right shoulder pain which she says continues. An orthopedics referral was sent on March 08, the [facility] Orthopedics office tried to call the patient to schedule an appointment but could not do so until he had a workman's comp claim number, they followed up a week later and the patient still did not have a workman's comp claim number. the patient has been trying to work with his company to get a workman's comp claim started but has been unsuccessful. He states he usually works through his injuries and has never had an [employer] comp claim/issue with this so he is not quite sure how it works. He does note that he has had continued right shoulder pain and has been trying to work through the pain, he did take 5 days off and rested it and it did feel significantly better. He also used Tylenol and aspirin with some relief. 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 Current occupational exposures/hazards: Yes Cognitive needs: No Hearing needs: No Vision needs: Yes Review of Systems Const All systems reviewed & are unremarkable except as noted in HPI and below Physical Exam Vital Signs: Last Vital Signs Temp 98 F 03/22/24 15:52 Pulse 79 03/22/24 15:52 BP 138/82 03/22/24 15:52 Pulse Ox 100 03/22/24 15:52 Oxygen Delivery Method Room Air 03/22/24 15:52 BMI result Body Mass Index 34.0 Const General: cooperative, healthy appearing, comfortable, no acute distress and well developed Orientation/consciousness: patient oriented x3 Limitations: no limitations HEENT Head: Yes normal to inspection Eyes General: appearance normal, both eyes and all related structures Neck Neck: Yes normal visual inspection and Yes full ROM Resp Effort & Inspection: normal respiratory effort and able to speak in complete sentences Skin General skin exam: no rashes or lesions noted Neuro General: patient oriented x3 Extrem General: Yes normal to inspection Assessment & Plan Assessment & Plan (1) Shoulder pain, right: Code(s): M25.511 - Pain in right shoulder Qualifiers: Chronicity: acute Qualified Code(s): M25.511 - Pain in right shoulder Plan: Recommended he communicate with his company and 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 also recommended once he has the claim number to follow up with Orthopedics to schedule an appointment. Plan see above Coding Level of Care Code Est Pt Level 3 (91152) Diagnoses Acute pain of right shoulder M25.511 Chronicity: acute
[2024-03-22 15:52] VITALS: BP 138/82; PULSE 79; TEMP 36.6; O2SAT 100; BMI 34.0
== END 2024-03-22 16:04 | disposition home or self-care (01) ==
PROVIDERS: PCP Nurse Practitioner Primary Care; Visit Provider Physician Assistant
DX: M25.511 Pain in right shoulder (principal)
CPT/HCPCS: 99213

== ENCOUNTER 2025-01-06 14:56 | Outpatient (AMB) | payer BC, SELFPAY ==
[2025-01-06 14:57] VITALS: BP 118/70; PULSE 83; O2SAT 98; BMI 35.3
--- NOTE | 2025-01-06 14:57 | MHC.PC.OV ---
Vital Signs 01/06/25 14:57 Height 5 ft 9 in Weight 239 lb 2 oz BMI 35.3 BP 118/70 Blood Pressure Location Rt brachial Position Sitting Pulse 83 Pulse Source Pulse Oximeter Pulse Oximetry (%) 98 Oxygen Delivery Method Room Air Intake Visit Reasons: Transfer from [facility] [employer] Required: No Accompanied by: Self / Same As Patient Allergies No Known Allergies Allergy (Verified 01/06/25 14:57) all narcotics / do not prescri Allergy (Unknown, Uncoded 01/05/24 14:03) Unknown Medication List - Last Reconciled 01/06/25 by DENIS Jordan- testosterone cypionate 200 mg IM Q2W Tobacco use date assessed: 01/06/25 Dental Screening Dental Screen Date: 01/06/25 Did you have a dental visit in the last 12 months?: Yes Did you have a dental problem in the last 6 months where you did not have access to dental care?: No Was dental information given to patient?: Patient has dentist HPI Transfer from [facility] HPI Details History of Present Illness The patient is a 44-year-old male presenting for a physical examination. He admitted to using testosterone obtained from a friend, demonstrating an awareness of the significant risks of misuse, such as life-threatening consequences. He recently completed a Cologuard test, submitted two days ago, and is pending results. The patient denied any symptoms related to cardiovascular, respiratory, gastrointestinal, urinary systems, and psychological well-being during the consultation. Health Maintenance - Await results of recently sent Cologuard test Social History - Testosterone usage through informal channels - Informed of the risks associated with excessive testosterone use Review of Systems - Cardiovascular: Denies chest pain, denies shortness of breath - Gastrointestinal: Denies abdominal pain, denies constipation, denies diarrhea - Genitourinary: Denies urinary issues - Psychological: Denies suicidal ideation, denies homicidal ideation Physical Exam General: Cooperative, healthy appearing, comfortable, no acute distress and well developed Orientation: Patient oriented x3 Limitations: No limitations Head: Normal to inspection Ears: Hearing grossly normal bilaterally Nose: Normal external nose present Face and sinus: Normal facial exam Eyes: Appearance normal, both eyes and all related structures Neck: Normal visual inspection and Yes full ROM Respiratory: Normal respiratory effort and able to speak in complete sentences. Clear to auscultation bilaterally Cardiovascular: Regular rate and rhythm. Normal S1 and S2 GI: Normal to inspection. Soft to palpation and nontender Skin: No rashes or lesions noted Neuro: Patient oriented x3 Extremities: Normal to inspection Results - Tests: Awaiting Cologuard test results submitted two days ago Plan We discussed the significant risks of unauthorized testosterone use, emphasizing awareness and caution. The patient is aware and open to communicating further should issues arise. The completion and pending results of the Cologuard test were acknowledged, with no further immediate diagnostic interventions planned. Monitoring will continue based on test results and any emerging health concerns. Discussion Notes I emphasized to the patient the critical health risks associated with the non-prescribed use of testosterone, including potential severe complications. We discussed the importance of responsible substance usage and agreed upon the necessity of monitoring the outcomes of his recent Cologuard test submission. Follow-up actions will depend on these results and any changes in the patient?s health status. Patient Instructions - Be aware of the effects and risks of testosterone use. - Await the results of the Cologuard test. - Report any new symptoms or concerns immediately. - Continuously evaluate the risks and benefits of any non-prescribed substances. 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 1. Little interest or pleasure in doing things: not at all 2. Feeling down, depressed, or hopeless: not at all 3. Trouble falling or staying asleep, or sleeping too much: not at all 4. Feeling tired or having little energy: not at all 5. Poor appetite or overeating: not at all 6. Feeling bad about yourself - or that you are a failure or have let yourself or your family down: not at all 7. Trouble concentrating on things, such as reading the newspaper or watching television: not at all 8. Moving or speaking so slowly that other people could have noticed. Or the opposite - being so fidgety or restless that you have been moving around a lot more than usual: not at all 9. Thoughts that you would be better off or of hurting yourself in some way: not at all Total score: 0 Depression Screening Interpretation: Negative Depression Screening Done: Yes 73158 - PHQ-9 Billing: Yes Source: Developed by Drs. Fabrice Gan, Idania Aguirre, Rl Palomo and colleagues, with an educational drake from [employer]. Thrive Questionnaire Date Thrive assessed: 01/06/25 I am a: Patient What is your living situation today?: I have a steady place to live Within the past 12 months, did the food you bought not last and you didn't have the money to get more?: Never true Within the past 12 months, did you worry whether your food would run out before you got money to buy more?: Never true Do you have trouble paying for medicines?: No Do you have trouble getting transportation to medical appointments?: No Do you have trouble paying your heating and electricity bill?: No Do you have trouble taking care of your child, family member or friend?: No Do you have trouble with day-to-day activities such as bathing, preparing meals, shopping, managing finances, etc.?: No Are you currently unemployed and looking for a job?: No Are you interested in more education?: I choose not to answer this question Please select the resources that you would like help with: None Currently or been in a relationship where the following occur: No concerns reported THRIVE Score: 0 AUDIT C Alcohol Use Questionnaire (AUDIT-C) 1. How often do you have a drink containing alcohol?: Never 3. How often do you have six or more drinks on one occasion?: Never Total Score: 0 Score Reviewed/Action Taken: Yes DEION-7 AMB Questionnaire DEION-7 Date DEION - 7 assessed: 01/06/25 Feeling nervous, anxious, or on edge: 0 = Not at all Not being able to stop or control worryin = Not at all Worrying too much about different things: 0 = Not at all Trouble relaxin = Not at all Being so restless that it is hard to sit still: 0 = Not at all Becoming easily annoyed or irritable: 0 = Not at all Feeling afraid as if something awful might happen: 0 = Not at all Total DEION-7 score (0-4 normal; 5-9 mild; 10-14 moderate; 15-21 severe): 0 Source: Developed by Drs. Fabrice Gan, Idania Aguirre, Rl Palomo and colleagues, with an educational drake from [employer]. DEION-7 Assessment Billing DEION-7 Assessment Tool: DEION-7 Assessment 95944 Physical exam (Primary Care) Vital Signs: Last Vital Signs Pulse 83 01/06/25 14:57 BP 118/70 01/06/25 14:57 Pulse Ox 98 01/06/25 14:57 Oxygen Delivery Method Room Air 01/06/25 14:57 BMI result Body Mass Index 35.3 Tobacco/Smoking Status: Tobacco use Status Tobacco use date assessed 01/06/25 01/06/25 14:59 Patient Tobacco Use Status Former Tobacco user (over 20 01/06/25 14:59 years ago) e-Cigarette/Vaping Use Never Used 01/06/25 14:59 PHQ-9: PHQ-9 Score PHQ-9: Total score 0 01/06/25 14:59 Depression Screening Interpretation: Negative Thrive Assessment: Date of Thrive Assessment Date Thrive assessed 01/06/25 01/06/25 14:59 Currently or been in a relationship where the following occur: No concerns reported Coding Level of Care Code Est Pt Prev Care 40-64y(66149) Diagnoses Physical exam Z00.00 Additional Codes DEION-7 Assessment Billing - DEION-7 Assessment Tool: DEION-7 Assessment 87817 ([id number]) PHQ-9 - 46465 - PHQ-9 Billing: Yes ([id number]) Assessment & Plan Assessment & Plan (1) Physical exam: Code(s): Z00.00 - Encounter for general adult medical examination without abnormal findings Category: Medical Plan . Orders: Orders Complete Blood Count Auto Diff Today Z00.00 - Encounter for general adult medical examination without abnormal findings Comprehensive [place]. Panel Fast Today Z00.00 - Encounter for general adult medical examination without abnormal findings Lipid Panel Today Z00.00 - Encounter for general adult medical examination without abnormal findings TSH reflex Free T4 Today Z00.00 - Encounter for general adult medical examination without abnormal findings UA CC w/rflx Micro + Cult Today Z00.00 - Encounter for general adult medical examination without abnormal findings AMB EKG-In Office Today Z00.00 - Encounter for general adult medical examination without abnormal findings
== END 2025-01-06 15:47 | disposition home or self-care (01) ==
LOC: HO.HMCC 14:57
PROVIDERS: PCP Nurse Practitioner Primary Care; Visit Provider Nurse Practitioner Family
DX: Z00.00 Encounter for general adult medical examination without abnormal findings (principal)

== ENCOUNTER → 2025-01-06 14:56 | Outpatient (BNVA) | payer BC, SELFPAY | PROVIDERS: PCP Nurse Practitioner Primary Care; Visit Provider Nurse Practitioner Family | DX: Z00.00 Encounter for general adult medical examination without abnormal findings (principal) | CPT/HCPCS: 96127 ==

== ENCOUNTER 2025-08-17 08:19 | Outpatient (REF) | payer BC, SELFPAY ==
[2025-08-17 10:03] LABS: MANUAL DIFF FLAG NO
[2025-08-17 10:08] LABS: Hematocrit 50.6 % (42.0-52.0); Hemoglobin 16.6 g/dl (14.0-18.0); Imm Gran Abs Auto 0.07 X10*3/uL (0.00-0.03); Imm Gran Pct Auto 0.5 % (0.0-0.4); Lymphocytes Absolute Auto 0.4 X10*3/uL (1.2-4.9); Mean Corpuscular HGB Conc 32.8 g/dl (31.0-36.0); Mean Corpuscular Hemoglobin 27.9 pg (27.0-33.0); Mean Corpuscular Volume 85.0 fL (80.0-98.0); NRBC Abs Auto 0.000 X10*3/uL (0.0-0.012); NRBC Pct Auto 0.0 /100WBC (0.0-0.2); Platelet Count 221 X10*3/uL (160-400); Red Blood Count 5.95 X10*6/uL (4.60-5.80); White Blood Count 14.1 X10*3/uL (4.8-10.8)
[2025-08-17 10:53] LABS: Alanine Aminotransferase 44 U/L (0-40); Albumin Level 4.5 g/dL (3.5-5.0); Alkaline Phosphatase 61 U/L (39-117); Anion Gap 10 (12-20); Aspartate Amino Transferase 28 U/L (5-37); Blood Urea Nitrogen 22 mg/dL (9-16); Calcium 9.5 mg/dL (8.4-10.2); Carbon Dioxide 25 mmol/L (22-29); Chloride 106 mmol/L (96-108); Estimated Glomerular Filt Rate 59; Potassium 4.2 mmol/L (3.3-5.1); Sodium 137 mmol/L (135-145); Total Protein 7.3 g/dL (6.5-8.0)
[2025-08-17 11:21] LABS: Resp Syncy Virus RNA Qual PCR NEGATIVE (Negative); SARS COV2 PCR INHOUSE NEGATIVE (Negative)
[2025-08-19 00:58] LABS: A. Phagocytphilium DNA,RT-PCR NOT DETECTED (NOT DETECTED); Babesia Microti DNA, RT-PCR NOT DETECTED (NOT DETECTED); Borrelia Miyamotoi,DNA RT-PCR NOT DETECTED (NOT DETECTED); E.Chaffeensis DNA RT-PCR NOT DETECTED (NOT DETECTED); Lyme(Borrelia ssp)DNA RT-PCR NOT DETECTED (NOT DETECTED)
== END 2025-08-17 08:20 | disposition home or self-care (01) ==
LOC: HO.HMGCLDS 08:19
PROVIDERS: PCP Nurse Practitioner Family; Visit Provider Physician Assistant
DX: S40.862A Insect bite (nonvenomous) of left upper arm, initial encounter (principal); R30.0 Dysuria; R68.89 Other general symptoms and signs; W57.XXXA Bitten or stung by nonvenomous insect and other nonvenomous arthropods, initial encounter; Z03.818 Encounter for observation for suspected exposure to other biological agents ruled out
CPT/HCPCS: 36415; 80053; 81003; 85025; 87468; 87469; 87478; 87484; 87637; 87798

== ENCOUNTER 2025-08-17 08:19 | Outpatient (AMB) | payer BC, SELFPAY ==
[2025-08-17 08:35] VITALS: BP 126/90; PULSE 121; TEMP 37.2; O2SAT 98; BMI 35.0
--- NOTE | 2025-08-17 08:35 | MHC.OFFWIV ---
Intake Vital Signs 08/17/25 08:35 Height 5 ft 9 in Weight 237 lb BMI 35.0 BP 126/90 H Blood Pressure Location Lt brachial Position Sitting Pulse 121 H Pulse Source Pulse Oximeter Temp 98.9 F Temp Source Oral Pulse Oximetry (%) 98 Oxygen Delivery Method Room Air Intake Visit Reasons: EP bit by tick, lyme? muscle pain Intake Note: Patient presents c/o muscle pain, joint aches, sweating/freezing, fever - patient found a tick under his left armpit the day after Thanksgiving - had Lyme previously. Patient Tobacco Use Status: Former Tobacco user Allergies No Known Allergies Allergy (Verified 08/17/25 08:44) all narcotics / do not prescri Allergy (Unknown, Uncoded 08/17/25 08:44) Unknown Do you need a note to return to daycare/school/sports/work: Yes HPI HPI Comments History of Present Illness Details This is a 45-year-old male with a past medical history of Lyme disease presenting for evaluation of acute onset of rigors last night at 10:30 p.m.. Patient states that his body was shaking and his teeth were chattering . Patient has taken both Tylenol and Advil for relief of his symptoms and taken a hot shower. Patient states after his rigors ceased he felt diaphoretic. This morning the patient describes ?joint pain and muscle pain all over?. Patient states that he removed a tick from his left armpit the day after Thanksgiving. He denies any new rashes or lesions. Patient reports ?bladder discomfort? with minimal dysuria over the past 30 days. Patient is afebrile and tachycardic. 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 Current occupational exposures/hazards: Yes Cognitive needs: No Hearing needs: No Vision needs: Yes Review of Systems Const All systems reviewed & are unremarkable except as noted in HPI and below Reports chills (describes rigors), Denies fatigue, Reports fever(s) (subjective), Denies headache(s), Reports malaise and Denies weakness Eyes Reports no additional complaints ENT Reports no additional complaints, Denies headache(s), Denies nasal congestion and Denies disequilibrium Card Reports no additional complaints Resp Reports no additional complaints, Denies chest congestion and Denies cough GI Denies abdominal pain, Denies nausea and Denies vomiting Reports no additional complaints Musc Reports myalgias and Reports arthralgias Skin/Breast Reports system reviewed and no additional complaints, except as documented, Denies pruritus, Denies lesions, Denies new lesions, Denies erythema and Denies rash Neuro Reports no additional complaints, Denies burning sensations, Denies headache(s), Denies paresthesias, Denies disequilibrium and Denies weakness Psych Reports no additional complaints Endo Reports no additional complaints and Denies fatigue Aller/Immun Reports no additional complaints Physical Exam Vital Signs: Last Vital Signs Temp 98.9 F 08/17/25 08:35 Pulse 121 H 08/17/25 08:35 BP 126/90 H 08/17/25 08:35 Pulse Ox 98 08/17/25 08:35 Oxygen Delivery Method Room Air 08/17/25 08:35 BMI result Body Mass Index 35.0 HR 108 bpm at time of examination. Const General: cooperative, comfortable, no acute distress, well developed, alert, awake and Physically active; No ill appearing, lethargic or tired appearing Nutritional Appearance: well nourished Orientation/consciousness: patient oriented x3 and No lethargic Limitations: no limitations Eyes General: appearance normal, both eyes and all related structures Sclerae: sclerae normal (No icterus) Neck Lymphatic: no lymphadenopathy noted Resp Effort & Inspection: normal respiratory effort, able to speak in complete sentences and normal respiratory pattern Auscultation: clear to auscultation bilaterally Cardio Rate: tachycardic Rhythm: regular rhythm GI Palpation (GI): Soft to palpation and Tenderness to palpation present (GI) suprapubicly (minimal; no CVAT); with no rebound tenderness General: No bladder normal to palpation (minimal tenderness) and Yes no CVA tenderness Back/Spine/Pelvis Back: no CVA tenderness Skin General skin exam: no rashes or lesions noted Neuro General: patient oriented x3 Psych Appearance: grossly normal Mental Status: mental status grossly normal Insight: Good insight present (Psych) Judgement: Good judgement present (Psych) Results AMB Urinalysis, Automated UA Leukoctes 0 Jesus/uL Last Edit by Stephanie Mcneill CMA on 08/17/25 09:21 UA Nitrite Negative Last Edit by Stephanie Mcneill, TA on 08/17/25 09:21 UA Urobilinogen 0.2 mg/dL Last Edit by Stephanie Mcneill CMA on 08/17/25 09:21 UA Protein 15 mg/dL Last Edit by Stephanie Mcneill CMA on 08/17/25 09:21 UA pH 6.0 Last Edit by Stephanie Mcneill, TA on 08/17/25 09:21 UA Blood 10 Reilly/uL Last Edit by Stephanie Mcneill, TA on 08/17/25 09:21 UA Specific [place] 1.030 Last Edit by Stephanie Mcneill CMA on 08/17/25 09:21 UA Ketone Negative Last Edit by Stephanie Mcneill CMA on 08/17/25 09:21 UA Bilirubin 0 mg/dL Last Edit by Stephanie Mcneill CMA on 08/17/25 09:21 UA Glucose 0 mg/dL Last Edit by Stephanie Mcneill CMA on 08/17/25 09:21 Results Reviewed Results Reviewed: Urinalysis reviewed; urine culture pending. Assessment & Plan Assessment & Plan (1) Tick bite: Comment: Patient presents with rigors, arthralgias and myalgias. Patient is well-appearing at this time and tick-borne testing will be ordered. Code(s): W57.XXXA - Bitten or stung by nonvenomous insect and other nonvenomous arthropods, initial encounter Qualifiers: Encounter type: initial encounter Site of tick bite: unspecified site Qualified Code(s): W57.XXXA - Bitten or stung by nonvenomous insect and other nonvenomous arthropods, initial encounter Plan: Will call patient with results of testing, antibiotic therapy is deferred at this time. (2) Dysuria: Comment: Patient presents with rigors, arthralgias and myalgias and reports minimal dysuria over the past 3 days. Urinalysis has been reviewed. Code(s): R30.0 - Dysuria Plan: Urine culture is pending at this time. Antibiotic therapy is deferred at the time of this visit. Orders: Orders SARS-CoV2/FLU/RSV Today R68.89 - Other general symptoms and signs Complete Blood Count Auto Diff Today W57.XXXA - Bitten or stung by nonvenomous insect and other nonvenomous arthropods, initial encounter Urine Culture Today R30.0 - Dysuria AMB Urinalysis Auto Microscop. Today R30.0 - Dysuria, R68.89 - Other general symptoms and signs Comprehensive Met. Panel Today W57.XXXA - Bitten or stung by nonvenomous insect and other nonvenomous arthropods, initial encounter Tick-borne Disease Molecular Today W57.XXXA - Bitten or stung by nonvenomous insect and other nonvenomous arthropods, initial encounter AMB Urinalysis Automated Today Z13.9 - Encounter for screening, unspecified Coding Level of Care Code Est Pt Level 4 (06659) Diagnoses Tick bite, unspecified site, initial encounter W57.XXXA Encounter type: initial encounter Site of tick bite: unspecified site Dysuria R30.0 Time Spent (min) 30
== END 2025-08-17 09:25 | disposition home or self-care (01) ==
PROVIDERS: PCP Nurse Practitioner Primary Care; Visit Provider Physician Assistant
DX: T63.481A Toxic effect of venom of other arthropod, accidental (unintentional), initial encounter (principal); R30.0 Dysuria; Z13.9 Encounter for screening, unspecified

== ENCOUNTER 2025-08-17 09:18 | Outpatient (REF) | payer BC, SELFPAY | END 2025-08-17 09:19 | disposition home or self-care (01) | LOC: HO.LAB 09:18 | PROVIDERS: Visit Provider Physician Assistant | DX: R30.9 Painful micturition, unspecified (principal) | CPT/HCPCS: 87086 ==